=== PATIENT | female | born 1990 | race Caucasian/White ===

== ENCOUNTER → 2019-03-12 | Outpatient (REF) | payer OTHER ==
[~2019-03-12] MED LIST: LARI1TAB11 PO; RALT40TA PO; TRUVTAB PO
[2019-03-12 12:25] LABS: BASO % 0.4 % (0.0-1.0); EOS # 0.2 10^3/uL (0.0-0.50); EOS % 2.1 % (0.0-3.0); HEMATOCRIT 42.4 % (36.0-47.0); HEMOGLOBIN 13.9 g/dl (12.0-15.5); LYMPH # 1.7 10^3/uL (1.5-6.5); LYMPH % 23.9 % (24.0-44.0); MEAN CORPUSCULAR HEMOGLOBIN 30.5 pg (27.0-33.0); MEAN CORPUSCULAR HGB CONC 32.8 g/dl (32.0-36.5); MEAN CORPUSCULAR VOLUME 93.2 fl (80.0-96.0); MONO # 0.8 10^3/uL (0.0-0.8); MONO % 10.5 % (0.0-5.0); NEUTROPHILS # 4.5 10^3/uL (1.8-7.7); NEUTROPHILS % 62.7 % (36.0-66.0); PLATELET COUNT, AUTOMATED 311 10^3/uL (150-450); RED BLOOD COUNT 4.55 10^6/uL (4.00-5.40); WHITE BLOOD COUNT 7.1 10^3/uL (4.0-10.0)
[2019-03-12 12:39] LABS: ALBUMIN 3.5 GM/DL (3.2-5.2); ALT/SGPT 26 U/L (12-78); BLOOD UREA NITROGEN 9 MG/DL (7-18); CALCIUM LEVEL 8.6 MG/DL (8.5-10.1); CARBON DIOXIDE LEVEL 27 MEQ/L (21-32); CHLORIDE LEVEL 110 MEQ/L (98-107); CHOLESTEROL LEVEL 149 MG/DL (<200); CHOLESTEROL RISK RATIO 3.239 (<5); CREATININE FOR GFR 0.84 MG/DL (0.55-1.30); FREE T4 1.12 NG/DL (0.76-1.46); GLOMERULAR FILTRATION RATE > 60.0 (>60); GLUCOSE, FASTING 82 MG/DL (70-100); HDL CHOLESTEROL 46 MG/DL (>40); LDL CHOLESTEROL 87 MG/DL (<100); NON-HDL-C 103 MG/DL; POTASSIUM SERUM 4.5 MEQ/L (3.5-5.1); SODIUM LEVEL 142 MEQ/L (136-145); TOTAL PROTEIN 7.2 GM/DL (6.4-8.2); TRIGLYCERIDES LEVEL 80 MG/DL (<150)
[2019-03-13 09:56] LABS: THYROID PEROXIDASE ANTIBODY < 28.0 U/ML (<60.0)
== END ==
LOC: M SFHCPLAZ 09:02
PROVIDERS: ATTEND Physician Assistant Medical
DX: Z00.00 Encounter for general adult medical examination without abnormal findings (principal); Z80.8 Family history of malignant neoplasm of other organs or systems; Z13.220 Encounter for screening for lipoid disorders

== ENCOUNTER → 2019-06-28 | Outpatient (REF) | payer OTHER ==
[2019-06-28 21:05] LABS: CHLAMYDIA DNA AMPLIFICATION NEGATIVE (NEGATIVE); GC DNA AMPLIFICATION NEGATIVE (NEGATIVE)
== END ==
LOC: M SFHCWAGY 17:00
PROVIDERS: ATTEND Nurse Practitioner Women's Health
DX: Z11.3 Encounter for screening for infections with a predominantly sexual mode of transmission (principal); N94.9 Unspecified condition associated with female genital organs and menstrual cycle

== ENCOUNTER → 2019-07-02 | Outpatient (REF) | payer OTHER ==
[2019-07-02 18:45] LABS: ALBUMIN 3.7 GM/DL (3.2-5.2); ALT/SGPT 37 U/L (12-78); BILIRUBIN,TOTAL 0.8 MG/DL (0.2-1.0); BLOOD UREA NITROGEN 11 MG/DL (7-18); CALCIUM LEVEL 9.1 MG/DL (8.5-10.1); CARBON DIOXIDE LEVEL 28 MEQ/L (21-32); CHLORIDE LEVEL 106 MEQ/L (98-107); CREATININE FOR GFR 0.97 MG/DL (0.55-1.30); GLOMERULAR FILTRATION RATE > 60.0 (>60); GLUCOSE, FASTING 75 MG/DL (70-100); POTASSIUM SERUM 4.5 MEQ/L (3.5-5.1); SODIUM LEVEL 140 MEQ/L (136-145); TOTAL PROTEIN 6.9 GM/DL (6.4-8.2)
== END ==
LOC: M SFHCPLAZ 15:43
PROVIDERS: ATTEND Physician Assistant Medical
DX: B35.3 Tinea pedis (principal)

== ENCOUNTER 2019-09-03 12:33 | Emergency (ER) | payer OTHER ==
[~2019-09-03] VITALS: Ht 160 cm; Wt 62.9 kg
[2019-09-03 12:33] VITALS: BP 123/71
[~2019-09-03 12:33] MED LIST changes: -LARI1TAB11 PO; -RALT40TA PO; +RALTEGRAVIR 400 MG TAB (ISENTRESS) PO SCH; -TRUVTAB PO
[2019-09-03] MEDS ORDERED: LARI1TAB11 PO (12:38)
[2019-09-03 13:34] LABS: BASO % 0.4 % (0.0-1.0); EOS # 0.1 10^3/uL (0.0-0.5); EOS % 0.7 % (0.0-3.0); HEMATOCRIT 44.2 % (36.0-47.0); HEMOGLOBIN 14.4 g/dl (12.0-15.5); LYMPH # 1.3 10^3/uL (1.5-5.0); LYMPH % 18.9 % (24.0-44.0); MEAN CORPUSCULAR HEMOGLOBIN 31.8 pg (27.0-33.0); MEAN CORPUSCULAR HGB CONC 32.6 g/dl (32.0-36.5); MEAN CORPUSCULAR VOLUME 97.6 fl (80.0-96.0); MONO # 0.5 10^3/uL (0.0-0.8); MONO % 6.5 % (0.0-5.0); NEUTROPHILS # 5.1 10^3/uL (1.5-8.5); NEUTROPHILS % 73.2 % (36.0-66.0); PLATELET COUNT, AUTOMATED 273 10^3/uL (150-450); RED BLOOD COUNT 4.53 10^6/uL (4.00-5.40); WHITE BLOOD COUNT 6.9 10^3/uL (4.0-10.0)
[2019-09-03 13:54] LABS: HCG, SERUM QUALITATIVE NEGATIVE (NEGATIVE)
[2019-09-03 13:56] LABS: ALT/SGPT 49 U/L (12-78); BILIRUBIN,TOTAL 0.9 MG/DL (0.2-1.0); BLOOD UREA NITROGEN 11 MG/DL (7-18); CALCIUM LEVEL 9.3 MG/DL (8.5-10.1); CARBON DIOXIDE LEVEL 25 MEQ/L (21-32); CHLORIDE LEVEL 110 MEQ/L (98-107); CREATININE FOR GFR 0.93 MG/DL (0.55-1.30); GLOMERULAR FILTRATION RATE > 60.0 (>60); GLUCOSE, FASTING 89 MG/DL (70-100); POTASSIUM SERUM 4.5 MEQ/L (3.5-5.1); SODIUM LEVEL 141 MEQ/L (136-145); TOTAL PROTEIN 7.2 GM/DL (6.4-8.2)
[2019-09-03] MEDS ORDERED: EXPOSURE KIT-ADULT 7 DAY SUPPLY PO ONE (14:00)
[2019-09-03] MEDS ORDERED: RALT40TA PO (14:09)
[2019-09-03] MEDS ORDERED: TRUVTAB PO (14:09)
[2019-09-03] MEDS ORDERED: TRUVADA 200MG/300MG TABLET PO ONE (14:15)
[2019-09-03] MEDS ORDERED: RALTEGRAVIR 400 MG TAB (ISENTRESS) PO ONE (14:15)
[2019-09-04] MEDS ORDERED: TRUVADA 200MG/300MG TABLET PO SCH
[2019-09-05 11:36] LABS: HEPATITIS B SURFACE ANTIBODY POSITIVE (POSITIVE)
[2019-09-05 11:47] LABS: HEPATITIS B SURFACE ANTIGEN NEGATIVE (NEGATIVE)
[2019-09-05 12:16] LABS: HEPATITIS C VIRUS ABY INDEX 0.2 INDEX (<0.8)
[2019-09-05 12:54] LABS: HIVEXPOSED0 NEGATIVE (NEGATIVE)
== END 2019-09-03 14:41 | disposition home or self-care (01) ==
LOC: M ED 12:33
DX: S61.231A Puncture wound without foreign body of left index finger without damage to nail, initial encounter (principal); Z77.21 Contact with and (suspected) exposure to potentially hazardous body fluids; W46.1XXA Contact with contaminated hypodermic needle, initial encounter; Y92.89 Other specified places as the place of occurrence of the external cause; Y93.F9 Activity, other caregiving; Y99.0 Civilian activity done for income or pay; Z79.3 Long term (current) use of hormonal contraceptives

== ENCOUNTER → 2019-09-18 | Outpatient (REF) | payer OTHER ==
[~2019-09-18] MED LIST changes: +LARI1TAB11 PO; +RALT40TA PO; -RALTEGRAVIR 400 MG TAB (ISENTRESS) PO SCH; +TRUVTAB PO
[2019-09-18 14:00] LABS: BASO % 0.4 % (0.0-1.0); EOS # 0.1 10^3/uL (0.0-0.5); EOS % 1.8 % (0.0-3.0); HEMOGLOBIN 14.1 g/dl (12.0-15.5); LYMPH # 1.6 10^3/uL (1.5-5.0); LYMPH % 21.4 % (24.0-44.0); MEAN CORPUSCULAR HEMOGLOBIN 30.8 pg (27.0-33.0); MEAN CORPUSCULAR HGB CONC 31.3 g/dl (32.0-36.5); MEAN CORPUSCULAR VOLUME 98.3 fl (80.0-96.0); MONO # 0.6 10^3/uL (0.0-0.8); MONO % 7.4 % (0.0-5.0); NEUTROPHILS # 5.3 10^3/uL (1.5-8.5); NEUTROPHILS % 68.6 % (36.0-66.0); PLATELET COUNT, AUTOMATED 331 10^3/uL (150-450); RED BLOOD COUNT 4.58 10^6/uL (4.00-5.40); WHITE BLOOD COUNT 7.7 10^3/uL (4.0-10.0)
[2019-09-18 14:38] LABS: ALBUMIN 3.9 GM/DL (3.2-5.2); ALT/SGPT 46 U/L (12-78); BILIRUBIN,TOTAL 0.8 MG/DL (0.2-1.0); BLOOD UREA NITROGEN 10 MG/DL (7-18); CALCIUM LEVEL 9.1 MG/DL (8.5-10.1); CARBON DIOXIDE LEVEL 28 MEQ/L (21-32); CHLORIDE LEVEL 106 MEQ/L (98-107); CPK CREATINE PHOSPHOKINASE 69 U/L (26-192); CREATININE FOR GFR 0.82 MG/DL (0.55-1.30); GLOMERULAR FILTRATION RATE > 60.0 (>60); GLUCOSE, FASTING 74 MG/DL (70-100); POTASSIUM SERUM 4.7 MEQ/L (3.5-5.1); SODIUM LEVEL 141 MEQ/L (136-145); TOTAL PROTEIN 7.4 GM/DL (6.4-8.2)
== END ==
LOC: M SFHCPLAZ 11:34
PROVIDERS: ATTEND Physician Assistant Medical
DX: R17 Unspecified jaundice (principal); A08.11 Acute gastroenteropathy due to Norwalk agent; E86.0 Dehydration

== ENCOUNTER → 2019-10-03 | Outpatient (REF) | payer OTHER ==
[2019-10-04 10:44] LABS: HEPATITIS C VIRUS ABY INDEX < 0.0 INDEX (<0.8); HIV 1&2 SCREEN CENTAUR NEGATIVE (NEGATIVE)
== END ==
LOC: M SFHCPLAZ 09:11
PROVIDERS: ATTEND Internal Medicine Infectious Disease
DX: Z11.4 Encounter for screening for human immunodeficiency virus [HIV] (principal); W46.1XXA Contact with contaminated hypodermic needle, initial encounter

== ENCOUNTER → 2020-01-23 | Outpatient (REF) | payer OTHER | LOC: M SFHCWAGY 17:05 | PROVIDERS: ATTEND Nurse Practitioner Women's Health | DX: Z12.4 Encounter for screening for malignant neoplasm of cervix (principal) ==

== ENCOUNTER → 2020-02-11 | Outpatient (CLI) | payer OTHER | LOC: M LABSMTC 12:56 | PROVIDERS: ATTEND Family Medicine | DX: Z11.59 Encounter for screening for other viral diseases (principal) | CPT/HCPCS: C9803; U0003 ==

== ENCOUNTER → 2020-04-29 | Outpatient (REF) | payer OTHER ==
[2020-04-29 16:58] LABS: BASO % 0.6 % (0.0-1.0); EOS # 0.1 10^3/uL (0.0-0.5); EOS % 2.3 % (0.0-3.0); HEMATOCRIT 48.6 % (36.0-47.0); HEMOGLOBIN 15.8 g/dl (12.0-15.5); LYMPH # 1.3 10^3/uL (1.5-5.0); LYMPH % 24.3 % (24.0-44.0); MEAN CORPUSCULAR HEMOGLOBIN 31.2 pg (27.0-33.0); MEAN CORPUSCULAR HGB CONC 32.5 g/dl (32.0-36.5); MONO # 0.6 10^3/uL (0.0-0.8); MONO % 10.5 % (0.0-5.0); NEUTROPHILS # 3.3 10^3/uL (1.5-8.5); NEUTROPHILS % 62.1 % (36.0-66.0); PLATELET COUNT, AUTOMATED 275 10^3/uL (150-450); RED BLOOD COUNT 5.06 10^6/uL (4.00-5.40); WHITE BLOOD COUNT 5.3 10^3/uL (4.0-10.0)
[2020-04-29 17:49] LABS: ALBUMIN 3.8 GM/DL (3.2-5.2); ALT/SGPT 26 U/L (12-78); BILIRUBIN,TOTAL 0.7 MG/DL (0.2-1.0); BLOOD UREA NITROGEN 8 MG/DL (7-18); CALCIUM LEVEL 9.5 MG/DL (8.5-10.1); CARBON DIOXIDE LEVEL 31 MEQ/L (21-32); CHLORIDE LEVEL 108 MEQ/L (98-107); CREATININE FOR GFR 0.89 MG/DL (0.55-1.30); FREE T4 1.11 NG/DL (0.76-1.46); GLOMERULAR FILTRATION RATE > 60.0 (>60); GLUCOSE, FASTING 77 MG/DL (70-100); POTASSIUM SERUM 4.9 MEQ/L (3.5-5.1); SODIUM LEVEL 141 MEQ/L (136-145); TOTAL PROTEIN 7.3 GM/DL (6.4-8.2)
== END ==
LOC: M SFHCPLAZ 13:20
PROVIDERS: ATTEND Physician Assistant Medical
DX: R53.83 Other fatigue (principal); B35.1 Tinea unguium

== ENCOUNTER → 2020-06-29 | Outpatient (CLI) | payer OTHER ==
[2020-06-29 15:41] LABS: ALBUMIN 3.9 GM/DL (3.2-5.2); BILIRUBIN,DIRECT 0.2 MG/DL (0.0-0.2); BILIRUBIN,TOTAL 0.9 MG/DL (0.2-1.0); TOTAL PROTEIN 7.4 GM/DL (6.4-8.2)
== END ==
LOC: M PLALAB 13:34
PROVIDERS: ATTEND Physician Assistant Medical
DX: B35.1 Tinea unguium (principal)

== ENCOUNTER → 2021-09-03 | Outpatient (REF) | payer OTHER ==
[~2021-09-03] MED LIST changes: +EMTR1TAB16 PO; -TRUVTAB PO
[2021-09-03 16:22] LABS: APPEARANCE, URINE CLOUDY (CLEAR); BACTERIA, URINE AUTO NEGATIVE (NEGATIVE); BILIRUBIN, URINE AUTO NEGATIVE (NEGATIVE); BLOOD, URINE BLOOD NEGATIVE (NEGATIVE); COLOR, URINE AMBER (YELLOW); GLUCOSE, URINE (UA) AUTO NEGATIVE (NEGATIVE); KETONE, URINE AUTO NEGATIVE (NEGATIVE); LEUKOCYTE ESTERASE, URINE AUTO 2+ (NEGATIVE); MUCUS, URINE LARGE (NEGATIVE); NITRITE, URINE AUTO POSITIVE (NEGATIVE); PROTEIN, URINE AUTO 1+ mg/dL (NEGATIVE); RBC, URINE AUTO 5 /HPF (0-3); SPECIFIC GRAVITY URINE AUTO 1.026 (1.002-1.035); SQUAMOUS EPITHELIAL CELL UR AU 6 /HPF (0-6); UROBILINOGEN, URINE AUTO 0.2 mg/dL (0.0-2.0); WBC, URINE AUTO 35 /HPF (0-3)
[2021-09-03 17:26] LABS: GC DNA AMPLIFICATION NEGATIVE (NEGATIVE)
== END ==
LOC: M LAB REF 15:53
PROVIDERS: ATTEND Physician Assistant
DX: N39.0 Urinary tract infection, site not specified (principal)

== ENCOUNTER → 2021-10-27 | Outpatient (REF) | payer OTHER ==
[2021-10-27 13:08] LABS: APPEARANCE, URINE CLEAR (CLEAR); BACTERIA, URINE AUTO NEGATIVE (NEGATIVE); BILIRUBIN, URINE AUTO NEGATIVE (NEGATIVE); BLOOD, URINE BLOOD 1+ (NEGATIVE); COLOR, URINE AMBER (YELLOW); GLUCOSE, URINE (UA) AUTO NEGATIVE (NEGATIVE); KETONE, URINE AUTO NEGATIVE (NEGATIVE); LEUKOCYTE ESTERASE, URINE AUTO 3+ (NEGATIVE); MUCUS, URINE SMALL (NEGATIVE); NITRITE, URINE AUTO POSITIVE (NEGATIVE); PROTEIN, URINE AUTO NEGATIVE (NEGATIVE); RBC, URINE AUTO 6 /HPF (0-3); SPECIFIC GRAVITY URINE AUTO 1.017 (1.002-1.035); SQUAMOUS EPITHELIAL CELL UR AU 1 /HPF (0-6); WBC, URINE AUTO 76 /HPF (0-3)
== END ==
LOC: M LAB REF 12:09
PROVIDERS: ATTEND Physician Assistant Medical
DX: R30.0 Dysuria (principal)

== ENCOUNTER 2024-08-26 14:05 | Emergency (ER) | payer OTHER ==
[~2024-08-26] VITALS: Ht 160 cm; Wt 77.0 kg
[2024-08-26 15:36] LABS: BASO % 0.3 % (0.0-1.0); EOS # 0.1 10^3/uL (0.0-0.5); EOS % 0.9 % (0.0-3.0); LYMPH # 1.5 10^3/uL (1.5-5.0); LYMPH % 19.5 % (24.0-44.0); MEAN CORPUSCULAR HEMOGLOBIN 30.8 pg (27.0-33.0); MEAN CORPUSCULAR HGB CONC 34.1 g/dl (32.0-36.5); MEAN CORPUSCULAR VOLUME 90.1 fl (80.0-96.0); MONO # 0.7 10^3/uL (0.0-0.8); MONO % 8.3 % (2.0-8.0); NEUTROPHILS # 5.5 10^3/uL (1.5-8.5); NEUTROPHILS % 70.7 % (36.0-66.0); PLATELET COUNT, AUTOMATED 289 10^3/uL (150-450); RED BLOOD COUNT 4.55 10^6/uL (4.00-5.40); WHITE BLOOD COUNT 7.8 10^3/uL (4.0-10.0)
[2024-08-26] MEDS: METOCLOPRAMIDE 10MG TAB PO ONE (16:40)
[2024-08-26 16:50] LABS: LIPASE 29 U/L (12-53)
[2024-08-26 16:53] LABS: ALBUMIN 3.6 G/DL (3.2-5.2); ALKALINE PHOSPHATASE 58 U/L (35-104); ALT/SGPT 21 U/L (7.0-40); AST/SGOT 15 U/L (<34); BILIRUBIN,DIRECT 0.2 MG/DL (<0.4); BILIRUBIN,TOTAL 0.6 MG/DL (0.3-1.2); BLOOD UREA NITROGEN 8 MG/DL (9-23); CALCIUM LEVEL 9.6 MG/DL (8.5-10.1); CARBON DIOXIDE LEVEL 22 MMOL/L (20-31); CHLORIDE LEVEL 108 MMOL/L (98-107); CREATININE FOR GFR 0.64 MG/DL (0.55-1.30); GLOMERULAR FILTRATION RATE > 60.0 (>60); GLUCOSE, FASTING 92 MG/DL (60-100); SODIUM LEVEL 139 MMOL/L (136-145); TOTAL PROTEIN 6.9 G/DL (5.7-8.2)
[2024-08-26 17:02] LABS: URINE PREG TEST POSITIVE (NEGATIVE)
[2024-08-26] MEDS ORDERED: REGL5TAB2 PO (17:09)
[2024-08-26 17:25] VITALS: BP 103/63; TEMP 98.3; O2SAT 98
== END 2024-08-26 17:26 | disposition home or self-care (01) ==
LOC: M ED 14:05
DX: Z32.01 Encounter for pregnancy test, result positive (principal); Z79.3 Long term (current) use of hormonal contraceptives

== ENCOUNTER → 2024-10-01 | Outpatient (CLI) | payer OTHER ==
[~2024-10-01] MED LIST changes: +REGL5TAB2 PO
== END ==
LOC: M PLALAB 11:08
PROVIDERS: ATTEND Obstetrics & Gynecology
DX: Z34.91 Encounter for supervision of normal pregnancy, unspecified, first trimester (principal)

== ENCOUNTER → 2024-11-13 | Outpatient (CLI) | payer OTHER ==
[2024-11-13 19:08] LABS: ALKALINE PHOSPHATASE 57 U/L (35-104); ALT/SGPT 55 U/L (7.0-40); AST/SGOT 28 U/L (<34); BILIRUBIN,TOTAL 0.5 MG/DL (0.3-1.2); BLOOD UREA NITROGEN 7 MG/DL (9-23); CALCIUM LEVEL 8.9 MG/DL (8.5-10.1); CARBON DIOXIDE LEVEL 23 MMOL/L (20-31); CHLORIDE LEVEL 108 MMOL/L (98-107); GLOMERULAR FILTRATION RATE > 60.0 (>60); GLUCOSE, FASTING 97 MG/DL (60-100); POTASSIUM SERUM 3.9 MMOL/L (3.5-5.1); SODIUM LEVEL 142 MMOL/L (136-145); TOTAL PROTEIN 6.4 G/DL (5.7-8.2)
== END ==
LOC: M PLALAB 16:07
PROVIDERS: ATTEND Obstetrics & Gynecology
DX: Z34.80 Encounter for supervision of other normal pregnancy, unspecified trimester (principal)

== ENCOUNTER → 2024-11-13 | Outpatient (CLI) | payer OTHER ==
[2024-11-13 17:20] LABS: HEMATOCRIT 37.2 % (36.0-47.0); HEMOGLOBIN 12.7 g/dl (12.0-15.5); MEAN CORPUSCULAR HEMOGLOBIN 31.3 pg (27.0-33.0); MEAN CORPUSCULAR HGB CONC 34.1 g/dl (32.0-36.5); MEAN CORPUSCULAR VOLUME 91.6 fl (80.0-96.0); PLATELET COUNT, AUTOMATED 248 10^3/uL (150-450); RED BLOOD COUNT 4.06 10^6/uL (4.00-5.40); WHITE BLOOD COUNT 10.9 10^3/uL (4.0-10.0)
[2024-11-13 18:30] LABS: HIV 1&2 SCREEN NEGATIVE (NEGATIVE)
[2024-11-13 18:39] LABS: HEPATITIS C VIRUS ABY INDEX 0.04 INDEX (<0.8)
[2024-11-13 18:56] LABS: GC DNA AMPLIFICATION NEGATIVE (NEGATIVE)
== END ==
LOC: M PLALAB 15:29
PROVIDERS: ATTEND Obstetrics & Gynecology
DX: Z34.91 Encounter for supervision of normal pregnancy, unspecified, first trimester (principal)

== ENCOUNTER → 2024-11-14 | Outpatient (REF) | payer OTHER | LOC: M SFHCWAGY 12:42 | PROVIDERS: ATTEND Obstetrics & Gynecology | DX: Z34.91 Encounter for supervision of normal pregnancy, unspecified, first trimester (principal) ==

== ENCOUNTER → 2024-11-22 | Outpatient (REF) | payer OTHER | LOC: M LABDRAWC 16:22 | PROVIDERS: ATTEND Obstetrics & Gynecology | DX: Z34.92 Encounter for supervision of normal pregnancy, unspecified, second trimester (principal) ==

== ENCOUNTER → 2024-11-22 | Outpatient (REF) | payer OTHER | LOC: M PLALAB 13:28 | PROVIDERS: ATTEND Obstetrics & Gynecology | DX: Z34.92 Encounter for supervision of normal pregnancy, unspecified, second trimester (principal); Z53.9 Procedure and treatment not carried out, unspecified reason ==

== ENCOUNTER → 2024-12-19 | Outpatient (CLI) | payer OTHER | LOC: M WHC 12:55 | PROVIDERS: ATTEND Nurse Practitioner Family | DX: Z34.82 Encounter for supervision of other normal pregnancy, second trimester (principal); Z3A.24 24 weeks gestation of pregnancy ==

== ENCOUNTER → 2025-01-02 | Outpatient (CLI) | payer OTHER ==
[2025-01-02 13:16] LABS: HEMATOCRIT 38.3 % (36.0-47.0); HEMOGLOBIN 12.7 g/dl (12.0-15.5); MEAN CORPUSCULAR HEMOGLOBIN 31.4 pg (27.0-33.0); MEAN CORPUSCULAR HGB CONC 33.2 g/dl (32.0-36.5); MEAN CORPUSCULAR VOLUME 94.6 fl (80.0-96.0); PLATELET COUNT, AUTOMATED 231 10^3/uL (150-450); RED BLOOD COUNT 4.05 10^6/uL (4.00-5.40)
[2025-01-02 13:24] LABS: GLUCOSE CHALLENGE TEST 1 HOUR 102 MG/DL (LESS THAN 140)
[2025-01-02 13:54] LABS: HIV 1&2 SCREEN NEGATIVE (NEGATIVE)
[2025-01-02 14:02] LABS: HEPATITIS C VIRUS ABY INDEX 0.04 INDEX (<0.8)
[2025-01-02 14:23] LABS: Trichomonas vaginalis (AMP) NOT DETECTED (NEGATIVE)
[2025-01-02 14:47] LABS: GC DNA AMPLIFICATION NEGATIVE (NEGATIVE)
== END ==
LOC: M PLALAB 09:39
PROVIDERS: ATTEND Nurse Practitioner Family
DX: Z34.80 Encounter for supervision of other normal pregnancy, unspecified trimester (principal)

== ENCOUNTER 2025-01-19 08:49 | Outpatient (CLI) | payer OTHER ==
[~2025-01-19] VITALS: Ht 162.6 cm; Wt 82.8 kg
[2025-01-19 09:03] VITALS: BP 112/65
[2025-01-19] MEDS ORDERED: PRENTAB9 PO (09:15)
[2025-01-19] MEDS ORDERED: NEXI20CA PO (09:15)
[2025-01-19] MEDS ORDERED: TUMS500C PO (09:15)
== END 2025-01-19 10:10 | disposition home or self-care (01) ==
LOC: M LDO 08:49
PROVIDERS: ATTEND Specialist
DX: O26.853 Spotting complicating pregnancy, third trimester (principal); O09.523 Supervision of elderly multigravida, third trimester; O98.313 Other infections with a predominantly sexual mode of transmission complicating pregnancy, third trimester; A60.09 Herpesviral infection of other urogenital tract; Z3A.29 29 weeks gestation of pregnancy
CPT/HCPCS: 59025; 76815; G0463

== ENCOUNTER 2025-01-20 17:34 | Outpatient (CLI) | payer OTHER ==
[~2025-01-20] VITALS: Ht 162.6 cm; Wt 81.4 kg
[~2025-01-20 17:34] MED LIST changes: +NEXI20CA PO; +PRENTAB9 PO; +TUMS500C PO
[2025-01-20 17:57] VITALS: BP 113/64
[2025-01-20] MEDS: FLUCONAZOLE 50MG TABLET PO ONE (21:37)
[2025-01-20 21:38] VITALS: BP 108/64
== END 2025-01-20 23:05 | disposition home or self-care (01) ==
LOC: M LDO 17:34
PROVIDERS: ATTEND Advanced Practice Midwife
DX: O23.593 Infection of other part of genital tract in pregnancy, third trimester (principal); B37.9 Candidiasis, unspecified; O09.523 Supervision of elderly multigravida, third trimester; O98.313 Other infections with a predominantly sexual mode of transmission complicating pregnancy, third trimester; A60.00 Herpesviral infection of urogenital system, unspecified; Z3A.29 29 weeks gestation of pregnancy
CPT/HCPCS: 59025; 76815; 76817; 76820; 87070; G0463

== ENCOUNTER → 2025-03-13 | Outpatient (REF) | payer OTHER | LOC: M LAB REF 15:06 | PROVIDERS: ATTEND Nurse Practitioner Family | DX: Z36.85 Encounter for antenatal screening for Streptococcus B (principal); Z3A.36 36 weeks gestation of pregnancy ==

== ENCOUNTER 2025-04-10 19:20 | Inpatient (IN) | payer OTHER ==
[~2025-04-10] VITALS: Ht 160 cm; Wt 87.1 kg
[2025-04-10] MEDS ORDERED: OXYTOCIN DRIP 30 UNITS in IV 1 EA IV PRN (19:35)
[2025-04-10] MEDS ORDERED: LIDOCAINE 1% MDV 20 ML VIAL INFIL PRN (19:35)
[2025-04-10 20:37] LABS: PLATELET COUNT, AUTOMATED 207 10^3/uL (150-450)
[2025-04-10] MEDS: miSOPROStol 50 MCG 1/2 TABLET SL SCH (20:43)
[2025-04-10 20:48] VITALS: BP 111/61
[2025-04-10 20:51] VITALS: BP 111/60
[2025-04-10 21:41] LABS: HEPATITIS C VIRUS ABY INDEX < 0.02 INDEX (<0.8)
[2025-04-11] VITALS (27 sets, daily range): BP systolic 94–124; BP diastolic 50–72
[2025-04-11] MEDS ORDERED: TRANEXAMIC ACID INJection 1,000 MG in NS 100 ML IV PRN (09:40)
[2025-04-11] MEDS ORDERED: CARBOPROST TROMETHAMINE 250 MCG/ML AMP IM PRN (09:40)
[2025-04-11] MEDS: LR 1,000 ML IV SCH (10:09)
[2025-04-11] MEDS: OXYTOCIN DRIP 30 UNITS in IV 1 EA IV SCH (10:09)
[2025-04-12] VITALS (52 sets, daily range): BP systolic 86–129; BP diastolic 47–69; O2SAT 96–98
[2025-04-12] MEDS: PROMETHAZINE 25MG/ML 1ML VIAL IV ONE (01:15)
[2025-04-12] MEDS: BUTORPHANOL 2 MG/ML 1 ML VIAL IV ONE (01:15)
[2025-04-12] MEDS ORDERED: ONDANSETRON 4MG 2ML VIAL IV PRN (02:50)
[2025-04-12] MEDS ORDERED: NALOXONE INJ 0.4 MG/1 ML VIAL IV PRN (02:50)
[2025-04-12] MEDS ORDERED: EPIDURAL/PCA KEYS XX PRN (02:50)
[2025-04-12] MEDS ORDERED: diphenhydrAMINE 50 MG/ML VIAL IV PRN (02:50)
[2025-04-12] MEDS ORDERED: LR 500 ML IV PRN (02:50)
[2025-04-12] MEDS: FENTANYL/ROPIVACAINE/NACL BAG 100 ML EPIDURAL SCH (03:05)
[2025-04-12] MEDS: METHYLERGONOVINE MALEATE 0.2 MG/ML 1 ML VIAL IM PRN (10:15)
[2025-04-12] MEDS ORDERED: RHOGAM 300MCG (1500IU) INJ IM SCH (10:40)
[2025-04-12] MEDS ORDERED: ACETAMINOPHEN 325 MG TAB PO PRN (10:40)
[2025-04-12] MEDS ORDERED: ANUSOL HC CREAM 30 GM TOP PRN (10:40)
[2025-04-12] MEDS ORDERED: MOM 30 ML SUSPENSION UDC PO PRN (10:40)
[2025-04-12] MEDS ORDERED: IBUPROFEN 600 MG TAB PO PRN (10:40)
[2025-04-12] MEDS ORDERED: METHYLERGONOVINE MALEATE 0.2 MG TAB PO PRN (10:40)
[2025-04-12] MEDS: ACETAMINOPHEN 500 MG TAB PO PRN (11:27)
[2025-04-12] MEDS: ONDANSETRON 4MG 2ML VIAL IV PRN (14:15)
[2025-04-12] MEDS: DOCUSATE SODIUM 100 MG CAPSULE PO PRN (18:21)
[2025-04-12] MEDS: DIBUCAINE 1% OINTMENT 30 GM TOP PRN (18:22)
[2025-04-13 06:00] VITALS: BP 91/56; O2SAT 100
[2025-04-13 06:40] LABS: PLATELET COUNT, AUTOMATED 188 10^3/uL (150-450)
[2025-04-13] MEDS: PRENATAL VITAMINS CHEWABLE TABLET PO SCH (08:18)
[2025-04-13 18:00] VITALS: BP 102/55; O2SAT 97
[2025-04-13] MEDS: IBUPROFEN 800 MG TAB PO PRN (20:57)
[2025-04-14 06:00] VITALS: BP 101/53; O2SAT 97
[2025-04-14] MEDS ORDERED: IBUP-1022 PO (08:37)
[2025-04-14] MEDS ORDERED: MEASLES,MUMPS,RUBELLA VACCINE INJ (MMR-II) SC.IMMUN ONE (09:00)
== END 2025-04-14 11:39 | disposition home or self-care (01) | DRG 560 ==
LOC: M LDI 19:20 → M OBS 04-12 14:00
PROVIDERS: ADMIT Specialist; ATTEND Advanced Practice Midwife
PROC: 3E033VJ Introduction of Other Hormone into Peripheral Vein, Percutaneous Approach (ICD-10-PCS; 2025-04-10)
PROC: 10D07Z6 Extraction of Products of Conception, Vacuum, Via Natural or Artificial Opening (ICD-10-PCS; principal; 2025-04-12)
PROC: 0HQ9XZZ Repair Perineum Skin, External Approach (ICD-10-PCS; 2025-04-12)
DX: O48.0 Post-term pregnancy (principal); O69.81X0 Labor and delivery complicated by cord around neck, without compression, not applicable or unspecified; Z37.0 Single live birth; Z3A.40 40 weeks gestation of pregnancy; O70.0 First degree perineal laceration during delivery

== ENCOUNTER → 2025-05-09 | Outpatient (REF) | payer OTHER ==
[~2025-05-09] MED LIST changes: +IBUP600T42 PO
[2025-05-09 13:45] LABS: APPEARANCE, URINE CLEAR (CLEAR); BACTERIA, URINE AUTO NEGATIVE (NEGATIVE); BILIRUBIN, URINE AUTO NEGATIVE (NEGATIVE); BLOOD, URINE BLOOD NEGATIVE (NEGATIVE); GLUCOSE, URINE (UA) AUTO NEGATIVE (NEGATIVE); KETONE, URINE AUTO NEGATIVE (NEGATIVE); LEUKOCYTE ESTERASE, URINE AUTO NEGATIVE (NEGATIVE); MUCUS, URINE SMALL (NEGATIVE); NITRITE, URINE AUTO NEGATIVE (NEGATIVE); PROTEIN, URINE AUTO NEGATIVE (NEGATIVE); RBC, URINE AUTO 2 /HPF (0-3); SPECIFIC GRAVITY URINE AUTO 1.018 (1.002-1.035); SQUAMOUS EPITHELIAL CELL UR AU 1 /HPF (0-6); UROBILINOGEN, URINE AUTO 0.2 mg/dL (0.0-2.0); WBC, URINE AUTO 4 /HPF (0-3)
== END ==
LOC: M SFHCWAGY 12:44
PROVIDERS: ATTEND Advanced Practice Midwife
DX: R30.0 Dysuria (principal)

== ENCOUNTER → 2025-06-25 | Outpatient (CLI) | payer BC | LOC: M WHC 07:24 | PROVIDERS: ATTEND Advanced Practice Midwife | DX: Z12.31 Encounter for screening mammogram for malignant neoplasm of breast (principal) ==

== ENCOUNTER → 2025-08-06 | Outpatient (CLI) | payer BC | LOC: M RAD 13:24 | PROVIDERS: ATTEND Physician Assistant | DX: M23.92 Unspecified internal derangement of left knee (principal) ==

== ENCOUNTER → 2025-08-12 | Outpatient (REF) | payer BC ==
[2025-08-14 18:27] LABS: HPV APTIMA Not Detected (Not Detected)
== END ==
LOC: M SFHCWAGY 14:07
PROVIDERS: ATTEND Advanced Practice Midwife
DX: Z12.4 Encounter for screening for malignant neoplasm of cervix (principal); R87.612 Low grade squamous intraepithelial lesion on cytologic smear of cervix (LGSIL)
CPT/HCPCS: 87624; G0123